=== PATIENT | male | born 1980 ===

== ENCOUNTER 2020-12-15 10:55 | Outpatient (CLI) | payer OTHER ==
--- NOTE | 2020-12-15 15:03 | XRAY Report ---
PROCEDURE: Shoulder 3 View LT INDICATIONS: L SHOULDER IMPINGEMENT SYNDROME TECHNIQUE: 3 views of the shoulder were acquired. COMPARISON: None. FINDINGS: Bones: No fractures or dislocations. No suspicious bony lesions. Visualized ribs appear intact. S cattered subchondral sclerosis and spurring. Joint spaces grossly preserved Soft tissues: No suspicious soft tissue calcifications. IMPRESSION: Negative examination. If the patient's pain or other symptoms persist, consider further evaluation with MRI. Reviewed by: Benito Jacobs MD on 12/15/2020 3:02 PM PDT Approved by: Benito Jacobs MD on 12/15/2020 3:02 PM PDT Station ID: [id number]
== END 2020-12-15 23:59 ==
LOC: DI.N 10:55
PROVIDERS: ATTEND Physician Assistant Medical
DX: M75.42 Impingement syndrome of left shoulder (principal)